=== PATIENT | male | born 1980 | race Caucasian/White ===

== ENCOUNTER 2018-02-28 11:06 | Outpatient (CLI) | payer OTHER | END 2018-02-28 11:07 | disposition home or self-care (01) | PROVIDERS: ATTEND Family Medicine | DX: R00.2 Palpitations (principal) | CPT/HCPCS: 93225; 93226 ==

== ENCOUNTER 2018-10-16 12:59 | Outpatient (CLI) | payer OTHER ==
--- NOTE | 2018-10-16 13:35 | ULT ---
THYROID ULTRASOUND INDICATION: Endocrine disorder; elevated parathyroid hormone TECHNIQUE: Grayscale and color Doppler images were obtained of the thyroid gland. COMPARISON: None FINDINGS: Right thyroid lobe: The right thyroid lobe measures 4.3 x 1.8 x 1.3 cm. Thyroid isthmus: The thyroid isthmus measures 0.32 cm. Left thyroid lobe: The left thyroid lobe measures 4.0 x 1.4 x 1.2 cm. IMPRESSION: 1. No focal thyroid lesion demonstrated.
== END 2018-10-16 13:00 | disposition home or self-care (01) ==
LOC: SCSULT 12:59
PROVIDERS: ATTEND Family Medicine
DX: E34.9 Endocrine disorder, unspecified (principal)
CPT/HCPCS: 76536